=== PATIENT | female | born 2000 | race Native Hawaiian/Other Pacific Islander ===

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

== ENCOUNTER 2022-04-05 21:23 | Observation (INO) | payer BC ==
[~2022-04-05] VITALS: Ht 180.3 cm; Wt 142.1 kg
[2022-04-05 21:30] VITALS: BP 138/86; TEMP 99.1
[2022-04-05 22:45] LABS: PLATELET COUNT 279 K/uL (152-353)
[2022-04-05 22:50] LABS: POTASSIUM 3.7 mmol/L (3.6-5.2)
[2022-04-06 00:16] LABS: PARTIAL THROMBOPLASTIN TIME 27.9 SECONDS (24.5-33.6)
[2022-04-06 01:57] VITALS: BP 132/87; TEMP 97.6; Ht 180.3 cm; Wt 142.1 kg
[2022-04-06 04:00] VITALS: BP 153/89; TEMP 98.6
[2022-04-06 08:00] VITALS: BP 130/84; TEMP 98
[2022-04-06 12:00] VITALS: BP 119/67; TEMP 98.3
[2022-04-06 16:27] VITALS: BP 139/92; TEMP 98.7
[2022-04-06 20:00] VITALS: BP 143/77; TEMP 98.3
[2022-04-07] VITALS: BP 144/82; TEMP 97.8
[2022-04-07 04:00] VITALS: BP 130/69; TEMP 98.2
[2022-04-07 08:00] VITALS: BP 119/75; TEMP 98
[2022-04-07 12:00] VITALS: BP 128/83; TEMP 98.8
[2022-04-07] MEDS ORDERED: LEVAQUIN250 MG PO (12:43)
[2022-04-07] MEDS ORDERED: AZIT250T3 PO (12:44)
[2022-04-07] MEDS ORDERED: ALBUSOL INH (12:45)
[2022-04-07] MEDS ORDERED: PREDNISONE10 M1 PO (12:48)
[2022-04-07] MEDS ORDERED: ALBU90AE13 INH (12:49)
== END 2022-04-07 14:16 | disposition home or self-care (01) ==
LOC: ED 21:23 → MED/SURG 04-06 00:20
PROVIDERS: ADMIT Emergency Medicine; ATTEND Internal Medicine
DX: J18.8 Other pneumonia, unspecified organism (principal)
CPT/HCPCS: 36415; 80053; 84484; 85027; 85379; 85610; 85730; 87040; 87502; 87635; 93005; 94664; 94760; 96365; 96366; 96372; 96374; 96375; 99220; 99284; G0378; J0456; J1650; J1956; J2405; J2920; J2930; J3490; U0003